=== PATIENT | male | born 1990 | race Caucasian/White ===

== ENCOUNTER 2019-07-21 12:16 | Emergency (ER) | payer SELFPAY ==
[~2019-07-21] VITALS: Ht 172.7 cm; Wt 72.7 kg
[2019-07-21 12:20] VITALS: BP 152/87
[2019-07-21] MEDS ORDERED: LIDOCAINE 1%/EPI 1:100,000 20 ML VIAL. SQ ONE (12:30)
[2019-07-21] MEDS ORDERED: DIPH,PERTUSS(ACELL),TET VAC/PF 0.5 ML SYRINGE. VAX IM ONE (12:45)
--- NOTE | 2019-07-21 13:01 | RAD ---
EXAM: Left knee, 3 views. HISTORY: Laceration COMPARISON: None. FINDINGS: 3 views of the left knee are obtained. There is no fracture, dislocation or subluxation. There is no joint effusion. There is a suprapatellar soft tissue laceration. No foreign body is seen. IMPRESSION: Left knee soft tissue laceration. No foreign body or fracture is seen. Electronically signed by: Lay Harvey MD (07/21/2019 12:57 PM) [facility]
--- NOTE | 2019-07-21 13:21 | PHYS DOC ---
Past Medical History Past Medical History: No Pertinent History Past Surgical History: No Surgical History Smoking Status: Never Smoker Alcohol Use: Occasionally General Adult EDM: Chief Complaint: LACERATION/AVULSION HPI: HPI: Patient is a 28 year old male who presents to the emergency department with complaints of a laceration to his left knee. Patient states he was using a chainsaw when he accidentally cut his left knee. Patient currently denies any pain, numbness, tingling, or weakness of the affected extremity. He states he is unsure when his last tetanus shot was. Patient states that the affected area only hurts if it is touched. Review of Systems: Review of Systems: Complete ROS is negative unless otherwise noted in HPI. Heart Score: Risk Factors: Risk Factors: DM, Current or recent (<one month) smoker, HTN, HLP, family history of CAD, obesity. Risk Scores: Score 0 - 3: 2.5% MACE over next 6 weeks - Discharge Home Score 4 - 6: 20.3% MACE over next 6 weeks - Admit for Clinical Observation Score 7 - 10: 72.7% MACE over next 6 weeks - Early Invasive Strategies Current Medications: Current Medications Medications (Trade) Dose Ordered Sig/Raghu Start Time Stop Time Status Last Admin Dose Admin Diphtheria/ Tetanus/Acell Pertussis (ADACEL TDap SYRINGE) 0.5 ml ONCE ONCE 07/21/19 12:45 07/21/19 12:46 DC 07/21/19 12:41 0.5 ML Lidocaine/ Epinephrine (LIDOCAINE 1%-EPI 1:100,000 Multi-Dose) 20 ml 1X ONCE 07/21/19 12:30 07/21/19 12:33 DC 07/21/19 12:39 20 ML Allergies: Allergies: Allergies Coded Allergies Type Severity Reaction Last Updated Verified No Known Drug Allergies 07/21/19 No Physical Exam: PE: Constitutional: Well developed, well nourished, no acute distress, non-toxic appearance. [] HENT: Normocephalic, atraumatic, bilateral external ears normal, nose normal. [] Eyes: PERRLA, EOMI, conjunctiva normal, no discharge. [] Neck: Normal range of motion, no stridor. [] Cardiovascular:Heart rate regular rhythm Lungs & Thorax: Bilateral breath sounds clear to auscultation [] Skin: Warm, dry, no erythema, no rash; 7 cm laceration noted to anterior left knee, no active bleeding. [] Extremities: Left knee: Anterior TTP without crepitus or obvious deformity, no cyanosis, no clubbing, ROM intact, no edema. [] Neurologic: Alert and oriented X 3, no focal deficits noted. [] Psychologic: Affect normal, judgement normal, mood normal. [] Current Patient Data: Vital Signs: Vital Signs Date Time Temp Pulse Resp B/P (MAP) Pulse Ox O2 Delivery O2 Flow Rate FiO2 07/21/19 12:20 98.2 87 17 152/87 (108) 100 Room Air 98.2 EKG: EKG: [] Radiology/Procedures: Radiology/Procedures: PROCEDURE: KNEE LEFT 3V EXAM: Left knee, 3 views. HISTORY: Laceration COMPARISON: None. FINDINGS: 3 views of the left knee are obtained. There is no fracture, dislocation or subluxation. There is no joint effusion. There is a suprapatellar soft tissue laceration. No foreign body is seen. IMPRESSION: Left knee soft tissue laceration. No foreign body or fracture is seen. [] Laceration Repair by me: Anesthesia: 1% lidocaine with epi locally Location: L knee Tendon/Joint/Nerves: No injury Foreign body: None detected after copious irrigation and exploration Technique: 14 surgical khoi Complexity: No subcutaneous sutures/mucosal repair/edge excision Post Closure Length: 7 cm Patient's bleeding was easily controlled in the department and there is no indication of anemia. No evidence of compartment syndrome, neurologic injury, vascular injury, open joint, tendon laceration, or foreign body. Patient is appropriate for outpatient follow up. Scar minimization instructions given. Course & Med Decision Making: Course & Med Decision Making Pertinent Labs and Imaging studies reviewed. (See chart for details) [] Dragon Disclaimer: Dragon Disclaimer: This electronic medical record was generated, in whole or in part, using a voice recognition dictation system. Departure Departure Impression: Primary Impression: Laceration of knee without complication Qualified Codes: S81.012A - Laceration without foreign body, left knee, initial encounter Additional Impressions: Laceration of knee without foreign body Qualified Codes: S81.012A - Laceration without foreign body, left knee, initial encounter Need for Tdap vaccination Disposition: HOME, SELF-CARE Condition: STABLE Referrals: NON,STAFF (PCP) Patient Instructions: Laceration Care, Adult, [id number], Staple Wound Closure, [id number] Additional Instructions: Fill the prescription and use as directed. Keep the area clean and dry. You may take Tylenol or ibuprofen as needed for pain. Keep the dressing that was placed today on for 24 hours then change the dressing twice a day and apply antibiotic ointment to the area. Wear the knee immobilizer until the khoi have been removed. Follow-up with your primary care doctor, or return to the emergency room in 14 days to have the khoi removed, sooner if you develop signs of infection including: redness, warmth, drainage, or a fever. Scripts Cephalexin (KEFLEX) 500 Mg Capsule 500 MG PO TID for 7 Days, #21 CAP 0 Refills Prov: TOOTIE KELLOGG APRN 07/21/19 TOOTIE KELLOGG APRN Jul 21, 2019 13:21
[2019-07-21] MEDS ORDERED: CEPH-264 PO (13:58)
== END 2019-07-21 14:15 | disposition home or self-care (01) ==
LOC: ER 12:16 → EDBD 12:16 → ER 14:15
DX: S81.012A Laceration without foreign body, left knee, initial encounter (principal); W31.2XXA Contact with powered woodworking and forming machines, initial encounter; Y93.89 Activity, other specified; Y92.89 Other specified places as the place of occurrence of the external cause; Y99.8 Other external cause status
CPT/HCPCS: 12002; 73562; 90471; 90715; 99283; J3490

== ENCOUNTER 2021-08-19 17:41 | Emergency (ER) | payer SELFPAY ==
[~2021-08-19] VITALS: Ht 175.3 cm; Wt 73.0 kg
[~2021-08-19 17:41] MED LIST: CEPH-264 PO
[2021-08-19 17:45] VITALS: BP 149/83
[2021-08-19] MEDS ORDERED: IV NORMAL SALINE 1000ML BAG 1,000 ML IV ONE ×2 (18:00)
[2021-08-19 18:08] LABS: BASO # 0.1 x10^3/uL (0.0-0.2); BASO % 1 % (0-3); EOS % 0 % (0-3); HEMATOCRIT 43.2 % (39.0-53.0); LYMPH # 1.7 x10^3/uL (1.0-4.8); LYMPH % 11 % (24-48); MEAN CORPUSCULAR HEMOGLOBIN 30 pg (25-35); MEAN CORPUSCULAR HGB CONC 35 g/dL (31-37); MEAN CORPUSCULAR VOLUME 87 fL (79-100); MONO # 1.1 x10^3/uL (0.0-1.1); MONO % 7 % (0-9); NEUT # 12.8 x10^3/uL (1.8-7.7); NEUT % 82 % (31-73); PLATELET COUNT 260 x10^3/uL (140-400); RED BLOOD COUNT 4.95 x10^6/uL (4.30-5.70); RED CELL DISTRIBUTION WIDTH 13.2 % (11.5-14.5); WHITE BLOOD COUNT 15.8 x10^3/uL (4.0-11.0)
[2021-08-19 18:21] LABS: CALCIUM 9.9 mg/dL (8.5-10.1); CREATININE 2.1 mg/dL (0.7-1.3); GFR 36.8; POTASSIUM 3.5 mmol/L (3.5-5.1)
[2021-08-19 18:29] LABS: ALBUMIN 4.7 g/dL (3.4-5.0); ALBUMIN/GLOBULIN RATIO 1.2 (1.0-1.7); TOTAL BILIRUBIN 0.6 mg/dL (0.2-1.0); TOTAL PROTEIN 8.7 g/dL (6.4-8.2)
[2021-08-19 18:37] LABS: % LYMPHS 10 % (24-48); % MONOS 4 % (0-10); % SEGS 86 % (35-66)
[2021-08-19 18:38] LABS: PLT ESTIMATE ADEQUATE (ADEQUATE)
--- NOTE | 2021-08-19 19:57 | PHYS DOC ---
Past Medical History Past Medical History: No Pertinent History Past Surgical History: No Surgical History Smoking Status: Never Smoker Alcohol Use: None General Adult EDM: Chief Complaint: HEAT EXPOSURE HPI: HPI: Patient is a 30 year old male with no significant medical history presenting to the ED today stating he is overheated. 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 Denies any chest pain. Review of Systems: Review of Systems: Constitutional: Denies fever or chills. [] Eyes: Denies change in visual acuity. [] HENT: Denies nasal congestion or sore throat. [] Respiratory: Denies cough or shortness of breath. [] Cardiovascular: Denies chest pain or edema. [] GI: Denies abdominal pain, nausea, vomiting, bloody stools or diarrhea. [] : Denies dysuria. [] Musculoskeletal: Reports muscle cramps from heat exposure Integument: Denies rash. [] Neurologic: Denies headache, focal weakness or sensory changes. [] Psychiatric: Denies depression or anxiety. [] Heart Score: C/O Chest Pain: N/A Risk Factors: Risk Factors: DM, Current or recent (<one month) smoker, HTN, HLP, family history of CAD, obesity. Risk Scores: Score 0 - 3: 2.5% MACE over next 6 weeks - Discharge Home Score 4 - 6: 20.3% MACE over next 6 weeks - Admit for Clinical Observation Score 7 - 10: 72.7% MACE over next 6 weeks - Early Invasive Strategies Current Medications: Current Medications Medications (Trade) Dose Ordered Sig/Raghu Start Time Stop Time Status Last Admin Dose Admin Sodium Chloride 1,000 ml @ 1,000 mls/hr 1X ONCE 08/19/21 18:00 08/19/21 18:59 DC 08/19/21 18:00 1,000 MLS/HR Allergies: Allergies: Allergies Coded Allergies Type Severity Reaction Last Updated Verified No Known Drug Allergies 07/21/19 No Physical Exam: PE: Constitutional: Well developed, well nourished, no acute distress, non-toxic appearance. [] HENT: Normocephalic, atraumatic, bilateral external ears normal, oropharynx moist, no oral exudates, nose normal. [] Eyes: PERRLA, EOMI, conjunctiva normal, no discharge. [] Neck: Normal range of motion, no tenderness, supple, no stridor. [] Cardiovascular:Heart rate regular rhythm, no murmur [] Lungs & Thorax: Bilateral breath sounds clear to auscultation [] Abdomen: Bowel sounds normal, soft, no tenderness, no masses, no pulsatile masses. [] Skin: Warm, dry, no erythema, no rash. [] Back: No tenderness, no CVA tenderness. [] Extremities: No tenderness, no cyanosis, no clubbing, ROM intact, no edema. [] Neurologic: Alert and oriented X 3, normal motor function, normal sensory function, no focal deficits noted. [] Psychologic: Affect normal, judgement normal, mood normal. [] Current Patient Data: Labs: Laboratory Tests Test 08/19/21 17:50 White Blood Count 15.8 x10^3/uL (4.0-11.0) H Red Blood Count 4.95 x10^6/uL (4.30-5.70) Hemoglobin 15.0 g/dL (13.0-17.5) Hematocrit 43.2 % (39.0-53.0) Mean Corpuscular Volume 87 fL (79-100) Mean Corpuscular Hemoglobin 30 pg (25-35) Mean Corpuscular Hemoglobin Concent 35 g/dL (31-37) Red Cell Distribution Width 13.2 % (11.5-14.5) Platelet Count 260 x10^3/uL (140-400) Neutrophils (%) (Auto) 82 % (31-73) H Lymphocytes (%) (Auto) 11 % (24-48) L Monocytes (%) (Auto) 7 % (0-9) Eosinophils (%) (Auto) 0 % (0-3) Basophils (%) (Auto) 1 % (0-3) Neutrophils # (Auto) 12.8 x10^3/uL (1.8-7.7) H Lymphocytes # (Auto) 1.7 x10^3/uL (1.0-4.8) Monocytes # (Auto) 1.1 x10^3/uL (0.0-1.1) Eosinophils # (Auto) 0.0 x10^3/uL (0.0-0.7) Basophils # (Auto) 0.1 x10^3/uL (0.0-0.2) Segmented Neutrophils % 86 % (35-66) H Lymphocytes % 10 % (24-48) L Monocytes % 4 % (0-10) Platelet Estimate Adequate (ADEQUATE) Sodium Level 138 mmol/L (136-145) Potassium Level 3.5 mmol/L (3.5-5.1) Chloride Level 104 mmol/L (98-107) Carbon Dioxide Level 20 mmol/L (21-32) L Anion Gap 14 (6-14) Blood Urea Nitrogen 26 mg/dL (8-26) Creatinine 2.1 mg/dL (0.7-1.3) H Estimated GFR (Cockcroft-Gault) 36.8 BUN/Creatinine Ratio 12 (6-20) Glucose Level 117 mg/dL (70-99) H Calcium Level 9.9 mg/dL (8.5-10.1) Total Bilirubin 0.6 mg/dL (0.2-1.0) Aspartate Amino Transferase (AST) 25 U/L (15-37) Alanine Aminotransferase (ALT) 37 U/L (16-63) Alkaline Phosphatase 96 U/L (46-116) Creatine Kinase 193 U/L (39-308) Creatine Kinase MB (Mass) 2.0 ng/mL (0.0-3.6) Creatine Kinase MB Relative Index 1.0 % (0-4) Total Protein 8.7 g/dL (6.4-8.2) H Albumin 4.7 g/dL (3.4-5.0) Albumin/Globulin Ratio 1.2 (1.0-1.7) Laboratory Tests 08/19/21 17:50 Laboratory Tests 08/19/21 17:50 Vital Signs: Vital Signs Date Time Temp Pulse Resp B/P (MAP) Pulse Ox O2 Delivery O2 Flow Rate FiO2 08/19/21 17:45 98.5 91 20 149/83 (105) 100 Room Air 98.5 EKG: EKG: [] Radiology/Procedures: Radiology/Procedures: [] Course & Med Decision Making: Course & Med Decision Making Pertinent Labs and Imaging studies reviewed. 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 Vitals on arrival to the ED temperature 98.5, heart rate 91, respiration 20, blood pressure 149/83, O2 sats 100% on room air. CBC with a WBC of 15.8, CMP with creatinine of 2.1, BUN is normal, Patient was given 2 L of IV fluids. 1954 patient requesting to leave AMA. I personally went to talk to patient. Informed patient he is in renal failure and recommended admission for more IV fluids. Patient states he cannot stay in the ED anymore. Given the risk of leaving AMA including and disability. He states he understands the risk and signed out AGAINST MEDICAL ADVICE Yamini Disclaimer: Yamini Disclaimer: This electronic medical record was generated, in whole or in part, using a voice recognition dictation system. Departure Departure Impression: Primary Impression: Heatstroke Qualified Codes: T67.01XA - Heatstroke and sunstroke, initial encounter Additional Impression: Acute renal failure Qualified Codes: N17.9 - Acute kidney failure, unspecified Disposition: 07 LEFT AGAINST MEDICAL ADVICE Condition: STABLE Referrals: NON,STAFF (PCP) [facility] [facility] August 19, 2021 19:57
== END 2021-08-19 19:58 | disposition left against medical advice (07) ==
LOC: ER 17:41
DX: T67.01XA Heatstroke and sunstroke, initial encounter (principal); N17.9 Acute kidney failure, unspecified; X30.XXXA Exposure to excessive natural heat, initial encounter; Y93.89 Activity, other specified; Y92.89 Other specified places as the place of occurrence of the external cause; Y99.8 Other external cause status
CPT/HCPCS: 36415; 80053; 82553; 85007; 85025; 96360; 96361; 99283; J7030